=== PATIENT | male | born 1995 ===

== ENCOUNTER 2024-03-27 23:20 | Emergency (ER) | payer SELFPAY ==
--- NOTE | 2024-03-28 03:49 | PC.NURSE ---
no answer x 2
== END 2024-03-28 04:06 | disposition left against medical advice (07) ==
LOC: ANHED 03-28 03:56
DX: Z53.21 Procedure and treatment not carried out due to patient leaving prior to being seen by health care provider (principal)
CPT/HCPCS: 99199